=== PATIENT | female | born 1995 | race Hispanic/Latino ===

== ENCOUNTER 2019-09-10 09:25 | Inpatient (IN) ==
[2019-09-10] MEDS ORDERED: PEPCID PO PRN ×2 (09:37)
[2019-09-10] MEDS ORDERED: TYLENOL PO PRN (09:37)
[2019-09-10] MEDS ORDERED: AMPICILLIN 2 GM in NS 100 ML IV ONE (09:37)
[2019-09-10] MEDS ORDERED: ZOFRAN IV PRN (09:37)
[2019-09-10] MEDS ORDERED: PEPCID IV PRN (09:37)
[2019-09-10] MEDS ORDERED: KEFZOL 2 GM/D5W 2 GM/50 ML IVPB IV PRN (09:37)
[2019-09-10] MEDS ORDERED: STADOL IV PRN (09:37)
[2019-09-10] MEDS ORDERED: REGLAN PO PRN (09:37)
[2019-09-10] MEDS ORDERED: PITOCIN 30 UNITS/NS 30 UNIT/500 ML IV.SOLN IV SCH ×2 (09:45→16:00)
[2019-09-10] MEDS ORDERED: SODIUM CHLORIDE 0.9% INJ SCH (09:45)
[2019-09-10] MEDS ORDERED: LR 1,000 ML IV SCH (09:45)
[2019-09-10] MEDS ORDERED: XYLOCAINE-MPF 1% INJ ONE (10:01)
[2019-09-10] MEDS ORDERED: MINERAL OIL PO ONE (10:01)
[2019-09-10 10:39] LABS: BASO# 0.06 X1000 (0.0-0.2); BASO% 0.6 % (0.0-0.8); EOS# 0.02 X1000 (0.0-0.7); EOS% 0.2 % (0.0-10.0); HEMATOCRIT 22.4 % (37.0-47.0); IMM GRAN# 0.13 X1000 (0.0-0.04); IMM GRAN% 1.3 % (0.0-0.5); LYMPH# 1.93 X1000 (1.2-3.4); MCH 16.8 PG (27-31); MCHC 26.8 g/dL (33-37); MCV 62.7 FL (81-99); MONO# 0.49 X1000 (0.11-0.59); MONO% 5.1 % (1.7-9.3); NEUT# 7.01 X1000 (1.4-6.5); NEUT% 72.8 % (42.2-75.2); PLT 247 X1000 (130-400); RBC 3.57 XMIL (4.2-5.4); RDW 26.3 % (11.5-14.5); WBC 9.64 X1000 (4.8-10.8)
[2019-09-10 11:11] LABS: URINE SOURCE VOIDED
[2019-09-10 11:16] LABS: BILIRUBIN URINE NEGATIVE (NEGATIVE); BLOOD URINE SMALL (NEGATIVE); COLOR YELLOW; GLUCOSE URINE NEGATIVE (NEGATIVE); KETONE URINE NEGATIVE (NEGATIVE); LEUKOCYTES URINE LARGE (NEGATIVE); NITRITE URINE NEGATIVE (NEGATIVE); PROTEIN URINE TRACE mg/dL (NEGATIVE); SP GRAVITY URINE 1.011; TURBIDITY URINE CLEAR (CLEAR); UROBILINOGEN URINE 2 mg/dL (NORMAL)
[2019-09-10 11:23] LABS: UR AMPHETAMINES QUAL NONE DETECTED (NONE DETECT); UR BARBITUATES QUAL NONE DETECTED (NONE DETECT); UR BENZODIAZEPIN QUAL NONE DETECTED (NONE DETECT); UR CANNABINOIDS QUAL NONE DETECTED (NONE DETECT); UR COCAINE QUAL NONE DETECTED (NONE DETECT); UR METHADONE QUAL NONE DETECTED (NONE DETECT); UR OPIATES QUAL NONE DETECTED (NONE DETECT); UR OXYCODONE QUAL NONE DETECTED (NONE DETECT); UR PCP QUAL NONE DETECTED (NONE DETECT)
[2019-09-10 11:31] LABS: RPR NON-REACTIVE (NONREACTIVE); RUBELLA SCREEN IMMUNE (IMMUNE)
[2019-09-10 11:32] LABS: RAPID HIV PRESUMPTIVE NEGATIVE
[2019-09-10 12:14] LABS: ANISOCYTOSIS 3+; BASO 1 % (0-1); EOS 1 % (1-10); HYPOCHROM 2+; LYMPHS 21 % (21-51); MICROCYTOSIS 3+; MONO 6 % (1-9); NRBC 2 % (0-0); SEGS 71 % (42-75)
[2019-09-10 12:15] LABS: LARGE PLATELETS 1+
[2019-09-10] MEDS: AMPICILLIN 1 GM in NS 50 ML IV SCH (14:10)
[2019-09-10] MEDS ORDERED: NS 0 ML ONE (14:52)
[2019-09-10] MEDS ORDERED: PITOCIN 20 UNITS/NS 20 UNITS/1,000 ML IV.SOLN ONE (15:30)
[2019-09-10] MEDS ORDERED: PITOCIN 20 UNITS/NS 20 UNITS/1,000 ML IV.SOLN IV SCH (15:30)
--- NOTE | 2019-09-10 15:39 | HISTORY AND PHYSICAL ---
HISTORY OF PRESENT ILLNESS: Jyotsna is a 23-year-old 1, para 0, who presented to Labor and Delivery with no care at term and active phase labor, 7 cm, intact membranes. She is admitted to Labor and Delivery for labor and delivery. PREVIOUS MEDICAL HISTORY: Negative. PREVIOUS SURGICAL HISTORY: Negative. OB HISTORY: This is the index . RECOVERY OPERATOR HELPER HISTORY: Negative due to compliance. FAMILY HISTORY: Noncontributory. ALLERGIES: None. MEDICINES: vitamins. REVIEW OF SYSTEMS: Negative for chest pain, shortness of breath, headache, cough, runny nose, fever, sore throat. PHYSICAL EXAMINATION: GENERAL: This is a well-developed young woman appearing her stated age. HEENT: Grossly normal. LUNGS: Unlabored breathing. HEART: Regular rate and rhythm. ABDOMEN: Gravid. EXTREMITIES: Without clubbing, cyanosis, or edema, PELVIC EXAM: Per marketing communications manager. IMPRESSION: A 23-year-old 1, para 0, approximately 37 weeks gestation by dates, presents in active phase labor. 1. Unknown group B Streptococcus status. We will start treating for unknown status. 2. Reactive tracing. Positive well-being. 3. The patient's initial labs indicate a hemoglobin of 6 and a low MCV. Microcytic anemia. Will follow hemoglobin post delivery. Recommend extra iron post delivery. 4. Estimated weight is 2200 g. 5. Anticipate normal spontaneous vaginal delivery.
[2019-09-10] MEDS ORDERED: BENADRYL PO PRN (15:56)
[2019-09-10] MEDS ORDERED: M-M-R II VACCINE SUBQ ONE (15:56)
[2019-09-10] MEDS ORDERED: CYTOTEC PO PRN (15:56)
[2019-09-10] MEDS ORDERED: HYDROXYZINE IM PRN (15:56)
[2019-09-10] MEDS ORDERED: PITOCIN IM PRN (15:56)
[2019-09-10] MEDS ORDERED: BOOSTRIX VACCINE IM ONE (15:56)
[2019-09-10] MEDS ORDERED: PERI MEDS (DERMOPLAST/NUPERCAINAL/TUCKS) MISC PRN (15:56)
[2019-09-10] MEDS ORDERED: XYLOCAINE-MPF 1% INJ PRN (15:56)
[2019-09-10] MEDS ORDERED: BENADRYL IV PRN (15:56)
[2019-09-10] MEDS ORDERED: AMBIEN PO PRN (15:56)
[2019-09-10] MEDS ORDERED: ATARAX PO PRN (15:56)
[2019-09-10] MEDS: MOTRIN PO PRN (18:55)
[2019-09-11] MEDS: PERICOLACE PO SCH ×2 (00:13→21:38)
[2019-09-11] MEDS: AMPICILLIN 1 GM in NS 50 ML IV SCH (00:14)
[2019-09-11 01:41] LABS: BASO# 0.09 X1000 (0.0-0.2); BASO% 0.7 % (0.0-0.8); EOS# 0.01 X1000 (0.0-0.7); EOS% 0.1 % (0.0-10.0); HEMATOCRIT 19.4 % (37.0-47.0); IMM GRAN# 0.09 X1000 (0.0-0.04); IMM GRAN% 0.7 % (0.0-0.5); LYMPH# 2.98 X1000 (1.2-3.4); LYMPH% 22.3 % (20.5-51.1); MCH 16.5 PG (27-31); MCHC 25.8 g/dL (33-37); MONO# 0.68 X1000 (0.11-0.59); MONO% 5.1 % (1.7-9.3); NEUT% 71.1 % (42.2-75.2); PLT 218 X1000 (130-400); RBC 3.03 XMIL (4.2-5.4); RDW 26.4 % (11.5-14.5); WBC 13.35 X1000 (4.8-10.8)
[2019-09-11] MEDS ORDERED: NS 1,000 ML IV SCH (02:00)
[2019-09-11] MEDS: MOTRIN PO PRN ×2 (06:00→21:38)
--- NOTE | 2019-09-11 06:53 | OPERATIVE NOTE ---
PROCEDURE DATE: 09/10/2019 PROCEDURE: Normal spontaneous vaginal delivery. PREOPERATIVE DIAGNOSES: 1. at 37 weeks. 2. No care. 3. Iron deficiency anemia. 4. Labor. 5. Thick meconium. POSTOPERATIVE DIAGNOSES: 1. at 37 weeks. 2. No care. 3. Iron deficiency anemia. 4. Labor. 5. Thick meconium. 6. Liveborn delivered. ESTIMATED BLOOD LOSS: 350 mL. COMPLICATIONS: None. DELIVERY NOTE: The patient presented in active stage labor at 7 cm. She received group B strep prophylaxis. Rupture of membranes was performed at 9 cm and thick meconium fluid was noted. An IUPC was placed to facilitate an amnioinfusion. However, the patient pushed and delivered prior to amnioinfusion starting. She delivered, over an intact perineum, a liveborn female . The delivered without difficulty or complication, was handed to the maternal abdomen, with spontaneous cry. The cord was clamped x2 and cut, and the infant was handed to the waiting pediatric resuscitation team. Cord blood was obtained. The placenta delivered intact with a three-vessel cord with gentle traction and Valsalva. The perineum was inspected, found to become intact and hemostatic.
--- NOTE | 2019-09-11 06:58 | OB/GYN PROGRESS NOTE ---
- Subjective Pt seen and examined. Pt is a PPD#1 s/p . Pt currently w/o complaints. Ambulating and urinating without difficulty. Tolerating regular diet, denies nausea/vomiting. Pt receiving 2 units of pRBCs and reports decreased dizziness and weakness. OB Physical Exam Vital Signs - 8 hr 09/11/19 00:00 09/11/19 02:27 09/11/19 02:48 Temperature 98.5 F 98.1 F Pulse Rate 64 72 63 Respiratory Rate 16 16 16 Blood Pressure 131/62 123/65 117/62 O2 Sat by Pulse Oximetry 100 99 100 09/11/19 03:03 09/11/19 04:00 09/11/19 05:55 Temperature 98.4 F 98.1 F Pulse Rate 61 62 55 L Respiratory Rate 18 16 16 Blood Pressure 145/65 127/67 138/69 O2 Sat by Pulse Oximetry 100 100 100 09/11/19 06:34 Temperature 98.2 F Pulse Rate 60 Respiratory Rate 16 Blood Pressure 136/75 O2 Sat by Pulse Oximetry 99 - CONSTITUTIONAL General Appearance: appears well, alert, no apparent distress - RESPIRATORY Respiratory: lungs clear, normal breath sounds - CARDIOVASCULAR Cardiovascular: regular rate, rhythm - GASTROINTESTINAL (ABDOMEN) Abdominal Exam: non tender, soft - MUSCULOSKELETAL Extremity: non-tender, no calf tenderness - SKIN Integumentary: normal color - PSYCHIATRIC Psych/Mental Status: normal mood/affect, oriented x 3 Active Medications Generic Name Dose Route Start Last Admin Trade Name Freq PRN Reason Stop Dose Admin Acetaminophen 650 mg 09/10/19 09:37 09/11/19 02:21 Tylenol PO 650 mg Q4-6H PRN PRN Administration Headache Benzocaine 1 each 09/10/19 15:56 [place] [facility] (Dermoplast/Nupercainal/Tucks) MISC 3-4XDAY PRN PRN episiotomy/hemorrhoids Butorphanol Tartrate 2 mg 09/10/19 09:37 Stadol IV PRN PRN Pain Diphenhydramine HCl 12.5 mg 09/10/19 15:56 Benadryl IV Q4H PRN PRN Itching Diphenhydramine HCl 25 mg 09/10/19 15:56 Benadryl PO Q4H PRN PRN Itching Famotidine 40 mg 09/10/19 09:37 Pepcid PO Q12H PRN PRN GI upset or indigestion Famotidine 20 mg 09/10/19 09:37 Pepcid IV Q12H PRN PRN GI upset or indigestion Famotidine 20 mg 09/10/19 09:37 Pepcid PO ONCE PRN PRN section Hydroxyzine HCl 50 mg 09/10/19 15:56 Atarax PO Q3-4H PRN PRN Nausea Hydroxyzine HCl 50 mg 09/10/19 15:56 Hydroxyzine IM Q3-4H PRN PRN Nausea Lactated Ringer's 1,000 mls @ 0 mls/hr 09/10/19 09:45 09/10/19 10:22 Lr IV 125 mls/hr .Q0M BREANA Administration As Directed Cefazolin Sodium/Dextrose 2 gm in 50 mls @ 50 mls/hr 09/10/19 09:37 Kefzol 2 Gm/D5w IV ONCE PRN PRN section Oxytocin/Sodium Chloride 20 units in 1,000 mls @ 0 mls/hr 09/10/19 15:30 Pitocin 20 Units/Ns IV .Q0M BREANA As Directed Sodium Chloride 1,000 mls @ 0 mls/hr 09/11/19 02:00 09/11/19 02:20 Ns IV 125 mls/hr .Q0M BREANA Administration As Directed Ibuprofen 800 mg 09/10/19 15:56 09/11/19 06:00 Motrin PO 800 mg Q8H PRN PRN Administration cramping Lidocaine HCl 30 ml 09/10/19 15:56 Xylocaine-Mpf 1% INJ PRN PRN Perineal repair Metoclopramide HCl 10 mg 09/10/19 09:37 Reglan PO ONCE PRN PRN section Misoprostol 800 microgm 09/10/19 15:56 Cytotec PO PRN PRN Severe bleeding Ondansetron HCl 4 mg 09/10/19 09:37 Zofran IV PRN PRN Nausea Oxytocin 20 unit 09/10/19 15:56 Pitocin IM PRN PRN Severe bleeding Senna/Docusate Sodium 1 each 09/10/19 21:00 09/11/19 00:13 Pericolace PO Not Given QHS BREANA Sodium Chloride 5 - 10 ml 09/10/19 09:45 Sodium Chloride 0.9% INJ DIRECTED BREANA Zolpidem Tartrate 10 mg 09/10/19 15:56 Ambien PO HS PRN PRN Sleep Laboratory Results - last 24 hr 09/10/19 09/10/19 09/10/19 03:25 03:25 03:25 WBC 9.64 RBC 3.57 L Hgb 6.0 L Hct 22.4 L MCV 62.7 L MCH 16.8 L MCHC 26.8 L RDW Std Deviation 26.3 H Plt Count 247 MPV Not Reportable Immature Gran % (Auto) 1.3 H Neut % (Auto) 72.8 Lymph % (Auto) 20.0 L [place] % (Auto) 5.1 Eos % (Auto) 0.2 Baso % (Auto) 0.6 Immature Gran # (Auto) 0.13 H Neut # (Auto) 7.01 H Lymph # (Auto) 1.93 [place] # (Auto) 0.49 Eos # (Auto) 0.02 Baso # (Auto) 0.06 Segmented Neutrophils 71 Lymphocytes 21 Monocytes 6 Eosinophils 1 Basophils 1 Nucleated RBCs 2 H Hypochromia 2+ Large Platelets 1+ Anisocytosis 3+ Microcytosis 3+ Glucose 95 Urine Source Urine Color Urine Turbidity Urine pH Ur Specific [place] Urine Protein Ur Glucose (Stick) Ur Ketones (Stick) Urine Blood Urine Nitrite Urine Bilirubin Urobilinogen Dipstick Urine Leukocytes Urine Opiates Screen Ur Oxycodone Screen Ur Methadone, Qual Ur Barbiturates Screen Ur Phencyclidine Scrn Ur Amphetamines Screen U Benzodiazepines Scrn Urine Cocaine Screen U Cannabinoids Screen RPR NON-REACTIVE HIV 1&2 Antibody Rapid PRESUMPTIVE NEGATIVE Rubella Immunity Screen IMMUNE Blood Type Antibody Screen Crossmatch 09/10/19 09/10/19 09/10/19 03:25 11:00 11:00 WBC RBC Hgb Hct MCV MCH MCHC RDW Std Deviation Plt Count MPV Immature Gran % (Auto) Neut % (Auto) Lymph % (Auto) [place] % (Auto) Eos % (Auto) Baso % (Auto) Immature Gran # (Auto) Neut # (Auto) Lymph # (Auto) [place] # (Auto) Eos # (Auto) Baso # (Auto) Segmented Neutrophils Lymphocytes Monocytes Eosinophils Basophils Nucleated RBCs Hypochromia Large Platelets Anisocytosis Microcytosis Glucose Urine Source VOIDED Urine Color YELLOW Urine Turbidity CLEAR Urine pH 6.0 Ur Specific [place] 1.011 Urine Protein TRACE A Ur Glucose (Stick) NEGATIVE Ur Ketones (Stick) NEGATIVE Urine Blood SMALL A Urine Nitrite NEGATIVE Urine Bilirubin NEGATIVE Urobilinogen Dipstick 2 A Urine Leukocytes LARGE A Urine Opiates Screen NONE DETECTED Ur Oxycodone Screen NONE DETECTED Ur Methadone, Qual NONE DETECTED Ur Barbiturates Screen NONE DETECTED Ur Phencyclidine Scrn NONE DETECTED Ur Amphetamines Screen NONE DETECTED U Benzodiazepines Scrn NONE DETECTED Urine Cocaine Screen NONE DETECTED U Cannabinoids Screen NONE DETECTED RPR HIV 1&2 Antibody Rapid Rubella Immunity Screen Blood Type O POSITIVE Antibody Screen NEGATIVE Crossmatch See Detail 09/11/19 00:50 WBC 13.35 H RBC 3.03 L Hgb 5.0 L* D Hct 19.4 L MCV 64.0 L MCH 16.5 L MCHC 25.8 L RDW Std Deviation 26.4 H Plt Count 218 MPV Not Reportable Immature Gran % (Auto) 0.7 H Neut % (Auto) 71.1 Lymph % (Auto) 22.3 [place] % (Auto) 5.1 Eos % (Auto) 0.1 Baso % (Auto) 0.7 Immature Gran # (Auto) 0.09 H Neut # (Auto) 9.50 H Lymph # (Auto) 2.98 [place] # (Auto) 0.68 H Eos # (Auto) 0.01 Baso # (Auto) 0.09 Segmented Neutrophils Lymphocytes Monocytes Eosinophils Basophils Nucleated RBCs Hypochromia Large Platelets Anisocytosis Microcytosis Glucose Urine Source Urine Color Urine Turbidity Urine pH Ur Specific [place] Urine Protein Ur Glucose (Stick) Ur Ketones (Stick) Urine Blood Urine Nitrite Urine Bilirubin Urobilinogen Dipstick Urine Leukocytes Urine Opiates Screen Ur Oxycodone Screen Ur Methadone, Qual Ur Barbiturates Screen Ur Phencyclidine Scrn Ur Amphetamines Screen U Benzodiazepines Scrn Urine Cocaine Screen U Cannabinoids Screen RPR HIV 1&2 Antibody Rapid Rubella Immunity Screen Blood Type Antibody Screen Crossmatch OB Assessment & Plan (1) Vaginal delivery Status: Acute Plan: 23yo PPD#1 s/p with anemia -Pt currently receiving 2 units of pRBCs. Will repeat Hgb 4 hrs post transfusion -reg diet -oob to ambulation -con't routine pp care
[2019-09-11 08:19] LABS: HEPATITIS B SURFACE ANTIGEN SEE COMMENTS
[2019-09-11 13:02] LABS: BASO% 0.8 % (0.0-0.8); EOS# 0.03 X1000 (0.0-0.7); EOS% 0.2 % (0.0-10.0); HEMATOCRIT 31.9 % (37.0-47.0); HEMOGLOBIN 9.5 g/dL (12.0-16.0); IMM GRAN# 0.11 X1000 (0.0-0.04); IMM GRAN% 0.8 % (0.0-0.5); LYMPH# 3.25 X1000 (1.2-3.4); LYMPH% 24.7 % (20.5-51.1); MCH 20.8 PG (27-31); MCHC 29.8 g/dL (33-37); MONO# 0.75 X1000 (0.11-0.59); MONO% 5.7 % (1.7-9.3); NEUT# 8.91 X1000 (1.4-6.5); NEUT% 67.8 % (42.2-75.2); PLT 200 X1000 (130-400); RBC 4.56 XMIL (4.2-5.4); WBC 13.15 X1000 (4.8-10.8)
[2019-09-11 14:45] LABS: ANISOCYTOSIS 2+; HYPOCHROM 1+; LYMPHS 23 % (21-51); MICROCYTOSIS 2+; MONO 7 % (1-9); SEGS 70 % (42-75)
[2019-09-11 15:55] LABS: HIV ANTIBODY SCREEN SEE COMMENTS
[2019-09-12] MEDS ORDERED: FERROUS SULFATE PO SCH (09:00)
[2019-09-12] MEDS: ZITHROMAX PO SCH ×4 (13:09→14:53)
[2019-09-12 15:27] VITALS: BP 118/75
== END 2019-09-12 20:15 | disposition home or self-care (01) | DRG 807 ==
LOC: NBC 09:25 → LD 09:26
PROVIDERS: ADMIT Obstetrics & Gynecology; ATTEND Obstetrics & Gynecology